=== PATIENT | male | born 1965 | race Caucasian/White ===

== ENCOUNTER 2016-04-24 13:53 | Emergency (ER) | payer OTHER ==
[~2016-04-24] VITALS: Ht 185.4 cm; Wt 136.3 kg
[~2016-04-24 13:53] MED LIST: AMLODIPINE BESYL5 MG PO; ASPIR 8181 M1 PO; ASPIRIN81 M2 PO; ATORVASTATIN CA80 MG PO; BUMETANIDE1 MG PO; BUMETANIDE2 MG PO; CARVEDILOL12.5 MG PO; CARVEDILOL6.25 MG PO; CENTRUM SILVER1 EAC3 PO; CLONIDINE HCL0.1 MG PO; DAILY VITE1 EAC1 PO; FUROSEMIDE80 MG PO; K-DUR10 MEQ PO; KLOR-CON SPRIN10 MEQ PO; LEVEMIR FL100 UNIT/1 SC; LORAZEPAM1 MG PO; LOSARTAN POTASS25 MG PO; NOVOLOG PE100 UNITS/ SC; SENNA8.6 MG PO; VANCOMYCIN HCL1 GM IV; VENLAFAXINE HCL75 M3 PO
[2016-04-24] MEDS ORDERED: CLEOCIN300 MG PO ×2 (14:47→16:18)
[2016-04-24 15:39] LABS: HEMATOCRIT 45.1 % (38.0-50.0); MCH 30.2 PG (29.0-34.0); MCHC 34.8 G/DL (30.0-36.0); MCV 86.7 FL (86-99); MEAN PLAT.VOLUME 10.1 uM^3 (9.0-12.4); PLATELET COUNT 191 K/uL (156-360); RBC DIS.WIDTH-CV 12.3 % (11.8-14.6); RBC DIS.WIDTH-SD 38.7 % (39-53); WHITE BLOOD COUNT 7.7 K/uL (4.1-10.2)
[2016-04-24] MEDS ORDERED: LEVEMIR FL100 UNIT/1 SC ×2 (15:44→15:45)
[2016-04-24 15:49] LABS: CHLORIDE 104 mEq/L (99-109)
[2016-04-24 15:50] LABS: POTASSIUM 4.7 mEq/L (3.7-5.4); SODIUM 136 mEq/L (136-147)
[2016-04-24 15:53] LABS: ANION GAP 10 MEQ/L (2-14)
[2016-04-24 15:55] LABS: GFR ESTIMATE (CALCULATED) 40 mL/min/; GLUCOSE 432 mg/dL (70-99)
[2016-04-24 15:56] LABS: UREA NITROGEN (BUN) 33 mg/dL (9-23)
[2016-04-24 16:21] VITALS: BP 165/75
== END 2016-04-24 16:22 | disposition home or self-care (01) ==
LOC: EME 13:53
PROVIDERS: Nurse Practitioner Family
DX: L03.116 Cellulitis of left lower limb (principal); E78.5 Hyperlipidemia, unspecified; E11.9 Type 2 diabetes mellitus without complications; Z95.810 Presence of automatic (implantable) cardiac defibrillator; Z95.1 Presence of aortocoronary bypass graft; Z94.83 Pancreas transplant status; Z79.4 Long term (current) use of insulin; Z79.82 Long term (current) use of aspirin
CPT/HCPCS: 80048; 85027; 99281; 99284

== ENCOUNTER 2016-12-12 11:53 | Emergency (ER) | payer OTHER ==
[~2016-12-12] VITALS: Ht 185.4 cm; Wt 136.4 kg
[~2016-12-12 11:53] MED LIST changes: +CLEOCIN300 MG PO
[2016-12-12] MEDS ORDERED: DOXYCYCLINE MO100 MG PO (16:25)
[2016-12-12 17:01] VITALS: BP 111/69
== END 2016-12-12 17:23 | disposition home or self-care (01) ==
LOC: EME 11:53
DX: L08.9 Local infection of the skin and subcutaneous tissue, unspecified (principal); E11.628 Type 2 diabetes mellitus with other skin complications; Z79.4 Long term (current) use of insulin; E78.5 Hyperlipidemia, unspecified; N28.9 Disorder of kidney and ureter, unspecified; Z89.422 Acquired absence of other left toe(s); Z89.421 Acquired absence of other right toe(s); Z95.1 Presence of aortocoronary bypass graft; Z79.82 Long term (current) use of aspirin; Z88.8 Allergy status to other drugs, medicaments and biological substances
CPT/HCPCS: 73630; 99281; 99284

== ENCOUNTER 2016-12-27 03:06 | Emergency (ER) | payer OTHER ==
[~2016-12-27] VITALS: Ht 185.4 cm; Wt 143.2 kg
[~2016-12-27 03:06] MED LIST changes: +DOXYCYCLINE MO100 MG PO
[2016-12-27] MEDS ORDERED: PERCOCET 5/31 TABLET PO (06:10)
[2016-12-27] MEDS ORDERED: IBUPROFEN400 MG PO (06:10)
[2016-12-27 06:39] VITALS: BP 153/78
== END 2016-12-27 06:40 | disposition home or self-care (01) ==
LOC: EME 03:06
DX: M25.532 Pain in left wrist (principal); R60.0 Localized edema; I11.0 Hypertensive heart disease with heart failure; I50.9 Heart failure, unspecified; E11.42 Type 2 diabetes mellitus with diabetic polyneuropathy; E78.5 Hyperlipidemia, unspecified; M19.90 Unspecified osteoarthritis, unspecified site; Z95.1 Presence of aortocoronary bypass graft; Z89.422 Acquired absence of other left toe(s); Z89.421 Acquired absence of other right toe(s); Z79.4 Long term (current) use of insulin; Z79.82 Long term (current) use of aspirin; Z79.2 Long term (current) use of antibiotics
CPT/HCPCS: 73110; 99281; 99283

== ENCOUNTER 2017-09-18 09:15 | Inpatient (IN) | payer OTHER ==
[~2017-09-18] VITALS: Ht 185.4 cm; Wt 151.8 kg
[~2017-09-18 09:15] MED LIST changes: +IBUPROFEN400 MG PO; +PERCOCET 5/31 TABLET PO
[2017-09-18 10:24] LABS: BASOPHIL (%) 0.4 % (0-1); EOSINOPHIL COUNT 0.1 K/uL (0-0.3); HEMATOCRIT 40.8 % (38.0-50.0); HEMOGLOBIN 13.8 G/DL (12.5-16.6); IMMATURE GRANULOCYTE (%) 0.4 % (0.0-0.7); LYMPHOCYTE (%) 14.8 % (15-42); LYMPHOCYTE COUNT 1.5 K/uL (1.0-2.8); MCH 29.7 PG (29.0-34.0); MCHC 33.8 G/DL (30.0-36.0); MCV 87.7 FL (86-99); MONOCYTE (%) 10.8 % (3-12); MONOCYTE COUNT 1.1 K/uL (0-0.8); NEUTROPHIL (%) 72.6 % (45-76); NEUTROPHIL COUNT 7.5 K/uL (1.8-6.4); PLATELET COUNT 199 K/uL (156-360); RBC DIS.WIDTH-CV 12.7 % (11.8-14.6); RBC DIS.WIDTH-SD 40.5 % (39-53); RED BLOOD COUNT 4.65 M/uL (4.00-5.50); WHITE BLOOD COUNT 10.3 K/uL (4.1-10.2)
[2017-09-18 10:36] LABS: CHLORIDE 100 mEq/L (99-109); POTASSIUM 4.1 mEq/L (3.7-5.4); SODIUM 133 mEq/L (136-147)
[2017-09-18 10:38] LABS: GLUCOSE 151 mg/dL (70-99); TOTAL PROTEIN 6.5 g/dL (6.4-8.3)
[2017-09-18 10:40] LABS: TOTAL BILIRUBIN 0.6 mg/dL (0.0-1.0)
[2017-09-18 10:42] LABS: ALKALINE PHOSPHATASE 150 IU/L (3-129); CREATININE 2.5 mg/dL (0.6-1.3); GFR ESTIMATE (CALCULATED) 29 mL/min/ (58.99-99999)
[2017-09-18 10:43] LABS: UREA NITROGEN (BUN) 46 mg/dL (9-23)
[2017-09-18 10:44] LABS: AST (GOT) 55 IU/L (2-34)
[2017-09-18 10:45] LABS: ALT (GPT) 53 IU/L (3-49)
[2017-09-18 10:47] LABS: TROP-I INTERPRETATION POSITIVE
[2017-09-18 10:50] LABS: TROPONIN-I 1.38 ng/mL (0.0-0.30)
[2017-09-18] MEDS ORDERED: BUMETANIDE1 MG PO (11:48)
[2017-09-18] MEDS ORDERED: CARVEDILOL12.5 MG PO (11:49)
[2017-09-18] MEDS ORDERED: K-DUR10 MEQ PO (11:50)
[2017-09-18] MEDS ORDERED: GLUCOSE4 GM PO (11:55)
[2017-09-18] MEDS ORDERED: TRESIBA FL200 UNIT/1 SC (11:55)
[2017-09-18] MEDS ORDERED: APIDRA SOL100 UNIT/1 SC (11:56)
[2017-09-18 13:20] LABS: APPEARANCE CLEAR ((CLEAR)); BILIRUBIN NEGATIVE; BLOOD SMALL; COLOR YELLOW ((YELLOW)); GLUCOSE (STRIP) NEGATIVE; KETONES NEGATIVE; LEUKOCYTES NEGATIVE; NITRITE NEGATIVE; PROTEIN (STRIP) NEGATIVE; SPECIFIC GRAVITY 1.009 (1.000-1.030); UROBILINOGEN 0.2 MG/DL (0.2-1.0)
[2017-09-18 13:58] LABS: EPITHELIAL CELLS RARE /HPF; RED BLOOD CELLS 0-5 /HPF (0-5); WHITE BLOOD CELLS 0-5 /HPF (0-5)
[2017-09-18 13:59] LABS: BACTERIA RARE /HPF; MUCUS RARE /LPF; UCUL ADDED? NO
[2017-09-18 14:00] LABS: HYALINE CASTS 0-5 /LPF
[2017-09-18 17:09] LABS: PREALBUMIN 11.2 mg/dL (10-40)
[2017-09-18 18:28] LABS: TROP-I INTERPRETATION POSITIVE
[2017-09-18 18:35] LABS: TROPONIN-I 1.14 ng/mL (0.0-0.30)
[2017-09-18 19:30] VITALS: BP 173/80
[2017-09-19] VITALS (8 sets, daily range): BP systolic 110–175; BP diastolic 56–89
[2017-09-19 01:16] LABS: TROP-I INTERPRETATION POSITIVE
[2017-09-19 01:23] LABS: TROPONIN-I 1.17 ng/mL (0.0-0.30)
[2017-09-19 05:20] LABS: HEMATOCRIT 38.1 % (38.0-50.0); MCH 29.6 PG (29.0-34.0); MCHC 34.1 G/DL (30.0-36.0); MCV 86.8 FL (86-99); PLATELET COUNT 209 K/uL (156-360); RBC DIS.WIDTH-CV 12.4 % (11.8-14.6); RBC DIS.WIDTH-SD 39.4 % (39-53); RED BLOOD COUNT 4.39 M/uL (4.00-5.50); WHITE BLOOD COUNT 9.2 K/uL (4.1-10.2)
[2017-09-19 06:16] LABS: CHLORIDE 100 MEQ/L (99-109); CREATININE 2.2 MG/DL (0.6-1.3); GFR ESTIMATE (CALCULATED) 33 mL/min/ (58.99-99999); GLUCOSE 119 mg/dL (70-99); POTASSIUM 3.7 MEQ/L (3.7-5.4); SODIUM 134 MEQ/L (136-147); UREA NITROGEN (BUN) 44 mg/dL (9-23)
[2017-09-19 09:25] LABS: HEMOGLOBIN A1c (GLYCOHEMOGLOB) 7.3 % (Below 5.7)
[2017-09-20 03:37] VITALS: BP 147/67
[2017-09-20 08:30] VITALS: BP 140/68
[2017-09-20 10:11] LABS: CHLORIDE 99 MEQ/L (99-109); CREATININE 1.8 MG/DL (0.6-1.3); GFR ESTIMATE (CALCULATED) 42 mL/min/ (58.99-99999); SODIUM 134 MEQ/L (136-147); UREA NITROGEN (BUN) 42 mg/dL (9-23)
[2017-09-20 10:12] LABS: GLUCOSE 230 mg/dL (70-99); POTASSIUM 4.5 MEQ/L (3.7-5.4)
[2017-09-20 12:46] VITALS: BP 156/80
[2017-09-20 15:45] VITALS: BP 154/92
[2017-09-20 19:40] VITALS: BP 162/62
[2017-09-20 23:53] VITALS: BP 132/71
[2017-09-21 03:53] VITALS: BP 138/75
[2017-09-21 05:32] LABS: HEMOGLOBIN 13.4 G/DL (12.5-16.6); MCH 29.6 PG (29.0-34.0); MCHC 34.4 G/DL (30.0-36.0); MCV 86.1 FL (86-99); PLATELET COUNT 202 K/uL (156-360); RBC DIS.WIDTH-CV 12.3 % (11.8-14.6); RBC DIS.WIDTH-SD 38.7 % (39-53); RED BLOOD COUNT 4.53 M/uL (4.00-5.50); WHITE BLOOD COUNT 8.2 K/uL (4.1-10.2)
[2017-09-21 05:58] LABS: CHLORIDE 98 MEQ/L (99-109); CREATININE 1.7 MG/DL (0.6-1.3); GFR ESTIMATE (CALCULATED) 45 mL/min/ (58.99-99999); GLUCOSE 316 mg/dL (70-99); POTASSIUM 4.3 MEQ/L (3.7-5.4); SODIUM 133 MEQ/L (136-147); UREA NITROGEN (BUN) 42 mg/dL (9-23)
[2017-09-21 07:32] VITALS: BP 173/82
[2017-09-21 09:07] VITALS: BP 141/77
[2017-09-21 11:45] VITALS: BP 158/82
[2017-09-21 15:56] VITALS: BP 169/79
[2017-09-21 20:25] VITALS: BP 134/64
[2017-09-22] VITALS (7 sets, daily range): BP systolic 119–137; BP diastolic 57–74
[2017-09-22 07:06] LABS: BASOPHIL (%) 0.5 % (0-1); BASOPHIL COUNT 0.1 K/uL (0-0.1); EOSINOPHIL (%) 2.4 % (0-5); EOSINOPHIL COUNT 0.2 K/uL (0-0.3); HEMATOCRIT 36.9 % (38.0-50.0); HEMOGLOBIN 12.5 G/DL (12.5-16.6); IMMATURE GRANULOCYTE (%) 0.3 % (0.0-0.7); LYMPHOCYTE (%) 28.2 % (15-42); LYMPHOCYTE COUNT 2.7 K/uL (1.0-2.8); MCH 29.7 PG (29.0-34.0); MCHC 33.9 G/DL (30.0-36.0); MCV 87.6 FL (86-99); MONOCYTE COUNT 0.9 K/uL (0-0.8); NEUTROPHIL (%) 59.6 % (45-76); NEUTROPHIL COUNT 5.8 K/uL (1.8-6.4); PLATELET COUNT 221 K/uL (156-360); RBC DIS.WIDTH-CV 12.3 % (11.8-14.6); RBC DIS.WIDTH-SD 39.6 % (39-53); RED BLOOD COUNT 4.21 M/uL (4.00-5.50); WHITE BLOOD COUNT 9.7 K/uL (4.1-10.2)
[2017-09-22 07:10] LABS: CHLORIDE 98 MEQ/L (99-109); GFR ESTIMATE (CALCULATED) 37 mL/min/ (58.99-99999); POTASSIUM 4.2 MEQ/L (3.7-5.4); SODIUM 134 MEQ/L (136-147); UREA NITROGEN (BUN) 47 mg/dL (9-23)
[2017-09-22 07:12] LABS: GLUCOSE 115 mg/dL (70-99)
[2017-09-22] MEDS ORDERED: BUMETANIDE1 MG PO (12:20)
[2017-09-23 04:21] VITALS: BP 117/67
[2017-09-23 06:42] LABS: CHLORIDE 98 MEQ/L (99-109); CREATININE 2.1 MG/DL (0.6-1.3); GFR ESTIMATE (CALCULATED) 35 mL/min/ (58.99-99999); POTASSIUM 4.5 MEQ/L (3.7-5.4); SODIUM 132 MEQ/L (136-147); UREA NITROGEN (BUN) 53 mg/dL (9-23)
[2017-09-23 06:44] LABS: GLUCOSE 235 mg/dL (70-99)
[2017-09-23 08:44] VITALS: BP 129/70
[2017-09-23 12:11] VITALS: BP 137/80
[2017-09-23] MEDS ORDERED: ANCEF,KEFZOL1 GM IV (12:23)
[2017-09-23] MEDS ORDERED: CARVEDILOL12.5 MG PO (12:24)
[2017-09-23] MEDS ORDERED: TRAMADOL HCL50 MG PO (12:25)
[2017-09-23 15:58] VITALS: BP 147/86
== END 2017-09-23 17:43 | DRG 854 ==
LOC: EME 09:15 → 5SOUTH 11:52 → 4EAST 11:52 → EDOF 11:52 → ENRESERV 11:53 → 4EAST 19:25 → ENRESERV 09-20 09:34 → 5SOUTH 09-20 12:33
PROVIDERS: Emergency Medicine; Family Medicine; Internal Medicine Nephrology; Physician Assistant
PROC: 0JBQ0ZZ Excision of Right Foot Subcutaneous Tissue and Fascia, Open Approach (ICD-10-PCS; principal; 2017-09-18)
PROC: 0JBR0ZZ Excision of Left Foot Subcutaneous Tissue and Fascia, Open Approach (ICD-10-PCS; principal; 2017-09-18)
DX: A41.01 Sepsis due to Methicillin susceptible Staphylococcus aureus (principal); E11.42 Type 2 diabetes mellitus with diabetic polyneuropathy; E11.65 Type 2 diabetes mellitus with hyperglycemia; E11.621 Type 2 diabetes mellitus with foot ulcer; E11.628 Type 2 diabetes mellitus with other skin complications; E11.22 Type 2 diabetes mellitus with diabetic chronic kidney disease; N17.9 Acute kidney failure, unspecified; E11.52 Type 2 diabetes mellitus with diabetic peripheral angiopathy with gangrene; I13.0 Hypertensive heart and chronic kidney disease with heart failure and stage 1 through stage 4 chronic kidney disease, or unspecified chronic kidney disease; L97.519 Non-pressure chronic ulcer of other part of right foot with unspecified severity; I96 Gangrene, not elsewhere classified; L03.031 Cellulitis of right toe; E66.01 Morbid (severe) obesity due to excess calories; L89.890 Pressure ulcer of other site, unstageable; I87.2 Venous insufficiency (chronic) (peripheral); I25.10 Atherosclerotic heart disease of native coronary artery without angina pectoris; E78.5 Hyperlipidemia, unspecified; I50.42 Chronic combined systolic (congestive) and diastolic (congestive) heart failure; T86.891 Other transplanted tissue failure; E11.21 Type 2 diabetes mellitus with diabetic nephropathy; L03.115 Cellulitis of right lower limb; I89.0 Lymphedema, not elsewhere classified; L97.929 Non-pressure chronic ulcer of unspecified part of left lower leg with unspecified severity; I44.1 Atrioventricular block, second degree; S90.521A Blister (nonthermal), right ankle, initial encounter; S90.425A Blister (nonthermal), left lesser toe(s), initial encounter; N18.4 Chronic kidney disease, stage 4 (severe); Y83.0 Surgical operation with transplant of whole organ as the cause of abnormal reaction of the patient, or of later complication, without mention of misadventure at the time of the procedure; I25.5 Ischemic cardiomyopathy; Z95.810 Presence of automatic (implantable) cardiac defibrillator; Z95.1 Presence of aortocoronary bypass graft; Y93.89 Activity, other specified; I25.2 Old myocardial infarction; Y92.89 Other specified places as the place of occurrence of the external cause; Z68.41 Body mass index [BMI] 40.0-44.9, adult; Z79.4 Long term (current) use of insulin; Z82.49 Family history of ischemic heart disease and other diseases of the circulatory system; Z89.421 Acquired absence of other right toe(s); Z91.19 Patient's noncompliance with other medical treatment and regimen
CPT/HCPCS: 71046; 73590; 73630; 80048; 80053; 81003; 82948; 83036; 83605; 83880; 84134; 84484; 85025; 85027; 85651; 86140; 87040; 87070; 87075; 87076; 87077; 87147; 87185; 87186; 87205; 87641; 87801; 93005; 93925; 93970; 97530 GO; 97530 GP; 99281; 99285; A6212; A6260; C1753; J0295; J0690; J1644; J1815; J3370; J7030; J7050

== ENCOUNTER 2017-10-22 14:55 | Inpatient (IN) | payer OTHER ==
[~2017-10-22] VITALS: Ht 185.4 cm; Wt 150.0 kg
[~2017-10-22 14:55] MED LIST changes: +ANCEF,KEFZOL1 GM IV; +APIDRA SOL100 UNIT/1 SC; +GLUCOSE4 GM PO; +TRAMADOL HCL50 MG PO; +TRESIBA FL200 UNIT/1 SC
[2017-10-22 17:08] LABS: BASOPHIL (%) 0.5 % (0-1); BASOPHIL COUNT 0.1 K/uL (0-0.1); EOSINOPHIL (%) 1.6 % (0-5); EOSINOPHIL COUNT 0.2 K/uL (0-0.3); HEMATOCRIT 41.4 % (38.0-50.0); IMMATURE GRANULOCYTE (%) 0.5 % (0.0-0.7); LYMPHOCYTE (%) 21.5 % (15-42); LYMPHOCYTE COUNT 2.4 K/uL (1.0-2.8); MCHC 33.8 G/DL (30.0-36.0); MCV 85.9 FL (86-99); MONOCYTE (%) 7.6 % (3-12); MONOCYTE COUNT 0.9 K/uL (0-0.8); NEUTROPHIL (%) 68.3 % (45-76); NEUTROPHIL COUNT 7.6 K/uL (1.8-6.4); PLATELET COUNT 332 K/uL (156-360); RBC DIS.WIDTH-CV 12.7 % (11.8-14.6); RBC DIS.WIDTH-SD 39.8 % (39-53); RED BLOOD COUNT 4.82 M/uL (4.00-5.50); WHITE BLOOD COUNT 11.1 K/uL (4.1-10.2)
[2017-10-22 17:12] LABS: CHLORIDE 101 mEq/L (99-109); POTASSIUM 4.7 mEq/L (3.7-5.4); SODIUM 135 mEq/L (136-147)
[2017-10-22 17:14] LABS: GLUCOSE 136 mg/dL (70-99)
[2017-10-22 17:18] LABS: CREATININE 1.8 mg/dL (0.6-1.3); GFR ESTIMATE (CALCULATED) 42 mL/min/ (58.99-99999)
[2017-10-22 17:19] LABS: UREA NITROGEN (BUN) 50 mg/dL (9-23)
[2017-10-22 17:46] LABS: ERTH.SED.RATE > 130 MM/HR (0-20)
[2017-10-22 17:57] LABS: C-REACTIVE PROTEIN 57.5 MG/L (0-10)
[2017-10-22] MEDS ORDERED: APIDRA SOL100 UNIT/1 SC (18:59)
[2017-10-22] MEDS ORDERED: BUMETANIDE2 MG PO (19:00)
[2017-10-23] VITALS (7 sets, daily range): BP systolic 113–164; BP diastolic 57–79
[2017-10-23 06:05] LABS: BASOPHIL (%) 0.4 % (0-1); EOSINOPHIL (%) 1.7 % (0-5); EOSINOPHIL COUNT 0.2 K/uL (0-0.3); HEMATOCRIT 39.7 % (38.0-50.0); HEMOGLOBIN 13.1 G/DL (12.5-16.6); IMMATURE GRANULOCYTE (%) 0.5 % (0.0-0.7); LYMPHOCYTE (%) 23.2 % (15-42); LYMPHOCYTE COUNT 2.2 K/uL (1.0-2.8); MCH 28.2 PG (29.0-34.0); MCV 85.4 FL (86-99); MONOCYTE (%) 10.5 % (3-12); NEUTROPHIL (%) 63.7 % (45-76); PLATELET COUNT 356 K/uL (156-360); RBC DIS.WIDTH-CV 12.8 % (11.8-14.6); RBC DIS.WIDTH-SD 39.5 % (39-53); RED BLOOD COUNT 4.65 M/uL (4.00-5.50); WHITE BLOOD COUNT 9.5 K/uL (4.1-10.2)
[2017-10-23 06:36] LABS: CHLORIDE 101 MEQ/L (99-109); CREATININE 1.6 MG/DL (0.6-1.3); GFR ESTIMATE (CALCULATED) 48 mL/min/ (58.99-99999); POTASSIUM 4.2 MEQ/L (3.7-5.4); SODIUM 136 MEQ/L (136-147); UREA NITROGEN (BUN) 48 mg/dL (9-23)
[2017-10-23 06:42] LABS: GLUCOSE 64 mg/dL (70-99)
[2017-10-24] VITALS (7 sets, daily range): BP systolic 113–139; BP diastolic 56–71
[2017-10-25 03:22] VITALS: BP 122/78
[2017-10-25 07:43] VITALS: BP 140/60
[2017-10-25 09:40] LABS: BASOPHIL (%) 0.7 % (0-1); BASOPHIL COUNT 0.1 K/uL (0-0.1); EOSINOPHIL (%) 2.7 % (0-5); EOSINOPHIL COUNT 0.2 K/uL (0-0.3); HEMOGLOBIN 11.8 G/DL (12.5-16.6); IMMATURE GRANULOCYTE (%) 0.4 % (0.0-0.7); MCHC 32.8 G/DL (30.0-36.0); MCV 85.3 FL (86-99); MONOCYTE (%) 10.1 % (3-12); MONOCYTE COUNT 0.8 K/uL (0-0.8); NEUTROPHIL (%) 62.1 % (45-76); NEUTROPHIL COUNT 5.1 K/uL (1.8-6.4); PLATELET COUNT 295 K/uL (156-360); RBC DIS.WIDTH-CV 12.9 % (11.8-14.6); RBC DIS.WIDTH-SD 39.7 % (39-53); RED BLOOD COUNT 4.22 M/uL (4.00-5.50); WHITE BLOOD COUNT 8.3 K/uL (4.1-10.2)
[2017-10-25 10:16] LABS: ALBUMIN 2.6 G/DL (3.2-4.8); ALKALINE PHOSPHATASE 133 IU/L (3-129); ALT (GPT) 33 IU/L (3-49); AST (GOT) 37 IU/L (2-34); CHLORIDE 100 MEQ/L (99-109); CREATININE 1.7 MG/DL (0.6-1.3); GFR ESTIMATE (CALCULATED) 45 mL/min/ (58.99-99999); POTASSIUM 4.3 MEQ/L (3.7-5.4); SODIUM 134 MEQ/L (136-147); TOTAL BILIRUBIN 0.6 MG/DL (0.0-1.0); TOTAL PROTEIN 6.2 G/DL (6.4-8.3); UREA NITROGEN (BUN) 45 mg/dL (9-23)
[2017-10-25 10:19] LABS: GLUCOSE 164 mg/dL (70-99)
[2017-10-25 11:12] VITALS: BP 145/77
[2017-10-25 16:46] VITALS: BP 139/75
[2017-10-25 19:29] VITALS: BP 154/74
[2017-10-25 23:14] VITALS: BP 148/70
[2017-10-26 03:23] VITALS: BP 139/72
[2017-10-26 06:50] VITALS: BP 129/74
[2017-10-26 15:00] VITALS: BP 150/73
[2017-10-26 21:18] VITALS: BP 141/66
[2017-10-26 23:33] VITALS: BP 154/73
[2017-10-27 08:10] VITALS: BP 134/69
[2017-10-27 15:29] VITALS: BP 140/73
[2017-10-27 23:48] VITALS: BP 127/76
[2017-10-28 06:03] LABS: BASOPHIL (%) 0.8 % (0-1); BASOPHIL COUNT 0.1 K/uL (0-0.1); EOSINOPHIL (%) 4.2 % (0-5); EOSINOPHIL COUNT 0.3 K/uL (0-0.3); HEMATOCRIT 35.9 % (38.0-50.0); HEMOGLOBIN 11.8 G/DL (12.5-16.6); IMMATURE GRANULOCYTE (%) 0.4 % (0.0-0.7); LYMPHOCYTE (%) 38.4 % (15-42); LYMPHOCYTE COUNT 2.9 K/uL (1.0-2.8); MCH 28.5 PG (29.0-34.0); MCHC 32.9 G/DL (30.0-36.0); MCV 86.7 FL (86-99); MONOCYTE (%) 8.3 % (3-12); MONOCYTE COUNT 0.6 K/uL (0-0.8); NEUTROPHIL (%) 47.9 % (45-76); NEUTROPHIL COUNT 3.7 K/uL (1.8-6.4); PLATELET COUNT 278 K/uL (156-360); RBC DIS.WIDTH-SD 40.6 % (39-53); RED BLOOD COUNT 4.14 M/uL (4.00-5.50); WHITE BLOOD COUNT 7.6 K/uL (4.1-10.2)
[2017-10-28 06:34] LABS: CHLORIDE 102 MEQ/L (99-109); CREATININE 1.6 MG/DL (0.6-1.3); GFR ESTIMATE (CALCULATED) 48 mL/min/ (58.99-99999); GLUCOSE 166 mg/dL (70-99); POTASSIUM 4.1 MEQ/L (3.7-5.4); SODIUM 139 MEQ/L (136-147); UREA NITROGEN (BUN) 36 mg/dL (9-23)
[2017-10-28 07:58] VITALS: BP 138/76
[2017-10-28 15:26] VITALS: BP 166/77
[2017-10-29 00:06] VITALS: BP 129/59
[2017-10-29 07:42] VITALS: BP 142/75
[2017-10-29 15:30] VITALS: BP 146/77
[2017-10-29 23:47] VITALS: BP 152/72
[2017-10-30 07:43] VITALS: BP 131/74
[2017-10-30] MEDS ORDERED: GABAPENTIN100 MG PO (11:36)
[2017-10-30] MEDS ORDERED: APIDRA SOL100 UNIT/1 SC (11:39)
[2017-10-30] MEDS ORDERED: TRESIBA FL200 UNIT/1 SC (11:40)
== END 2017-10-30 15:33 | DRG 638 ==
LOC: EME 14:55 → 5EAST 20:12 → EDOF 20:12 → ENRESERV 20:16 → 5EAST 22:33
PROVIDERS: Emergency Medicine; Hospitalist; Student in an Organized Health Care Education/Training Program
DX: E10.69 Type 1 diabetes mellitus with other specified complication (principal); M86.9 Osteomyelitis, unspecified; L03.115 Cellulitis of right lower limb; L02.611 Cutaneous abscess of right foot; Z68.41 Body mass index [BMI] 40.0-44.9, adult; M84.674A Pathological fracture in other disease, right foot, initial encounter for fracture; L97.413 Non-pressure chronic ulcer of right heel and midfoot with necrosis of muscle; E10.621 Type 1 diabetes mellitus with foot ulcer; E10.622 Type 1 diabetes mellitus with other skin ulcer; E10.22 Type 1 diabetes mellitus with diabetic chronic kidney disease; E10.319 Type 1 diabetes mellitus with unspecified diabetic retinopathy without macular edema; E10.42 Type 1 diabetes mellitus with diabetic polyneuropathy; E10.51 Type 1 diabetes mellitus with diabetic peripheral angiopathy without gangrene; E10.628 Type 1 diabetes mellitus with other skin complications; E10.65 Type 1 diabetes mellitus with hyperglycemia; E66.01 Morbid (severe) obesity due to excess calories; G89.29 Other chronic pain; E78.5 Hyperlipidemia, unspecified; I25.5 Ischemic cardiomyopathy; I12.9 Hypertensive chronic kidney disease with stage 1 through stage 4 chronic kidney disease, or unspecified chronic kidney disease; I25.10 Atherosclerotic heart disease of native coronary artery without angina pectoris; N18.4 Chronic kidney disease, stage 4 (severe); M19.90 Unspecified osteoarthritis, unspecified site; Y83.0 Surgical operation with transplant of whole organ as the cause of abnormal reaction of the patient, or of later complication, without mention of misadventure at the time of the procedure; I87.2 Venous insufficiency (chronic) (peripheral); I89.0 Lymphedema, not elsewhere classified; I87.8 Other specified disorders of veins; L97.529 Non-pressure chronic ulcer of other part of left foot with unspecified severity; L97.514 Non-pressure chronic ulcer of other part of right foot with necrosis of bone; B96.5 Pseudomonas (aeruginosa) (mallei) (pseudomallei) as the cause of diseases classified elsewhere; B95.4 Other streptococcus as the cause of diseases classified elsewhere; I25.2 Old myocardial infarction; Z79.4 Long term (current) use of insulin; Z89.421 Acquired absence of other right toe(s); Z95.1 Presence of aortocoronary bypass graft; Z95.810 Presence of automatic (implantable) cardiac defibrillator; Z86.14 Personal history of Methicillin resistant Staphylococcus aureus infection; Z82.49 Family history of ischemic heart disease and other diseases of the circulatory system; Z91.11 Patient's noncompliance with dietary regimen
CPT/HCPCS: 73630; 76937; 80048; 80053; 80202; 82948; 83605; 85025; 85651; 86140; 87040; 87070; 87075; 87077; 87205; 93005; 93970; 97530 GO; 97530 GP; 99281; 99285; A6260; J0692; J1644; J1815; J2543; J3370; J7050